=== PATIENT | male | born 1965 | race Caucasian/White ===

== ENCOUNTER → 2016-11-11 | Outpatient (CLI) | payer OTHER ==
--- NOTE | 2016-11-11 07:53 | DIAGNOSTIC IMAGING REPORT ---
R FOOT MIN 3 VIEWS ROUTINE CLINICAL HISTORY: 51 years-old Male presenting with M79.671 Chronic right foot pain, ongoing for 2 years. TECHNIQUE: Frontal, oblique, and lateral views of the right foot were obtained. COMPARISON: None. FINDINGS: Irregularity at the medial base of the distal phalanx of the first toe with possible subchondral cystic change could suggest degenerative change. No other degenerative change is evident. Bipartite lateral sesamoid at the first metatarsal. No acute fracture or malalignment. No radiographic evidence of soft tissue swelling. IMPRESSION: Mild degenerative change at the interphalangeal joint of the first toe suggested. No acute osseous injury. Electronically signed by: Kade Morgan M.D. 11/11/2016 7:52 AM Dictated Date/Time: 11/11/2016 7:49 AM
== END | disposition home or self-care (01) ==
LOC: C.RAD 07:22
PROVIDERS: ATTEND Physician Assistant
DX: M79.671 Pain in right foot (principal); M19.071 Primary osteoarthritis, right ankle and foot

== ENCOUNTER → 2017-09-10 | Outpatient (CLI) | payer OTHER ==
[2017-09-10 13:47] LABS: ALBUMIN 3.7 gm/dl (3.4-5.0); ALKALINE PHOSPHATASE 72 U/L (45-117); ALT/SGPT 24 U/L (12-78); AST/SGOT 12 U/L (15-37); BLOOD UREA NITROGEN 18 mg/dl (7-18); CARBON DIOXIDE 27 mmol/L (21-32); CHOLESTEROL 166 mg/dl (0-200); CREATININE 0.83 mg/dl (0.60-1.40); GLUCOSE,FASTING 106 mg/dl (70-99); LDL CHOLESTEROL CALCULATED 88 mg/dl; POTASSIUM 4.3 mmol/L (3.5-5.1); SODIUM 139 mmol/L (136-145)
== END | disposition home or self-care (01) ==
LOC: C.LABPBG 08:13
PROVIDERS: ATTEND Physician Assistant
DX: Z00.00 Encounter for general adult medical examination without abnormal findings (principal)